=== PATIENT | male | born 1990 | race Hispanic/Latino ===

== ENCOUNTER 2025-09-21 16:00 | Inpatient (IN) | payer SELFPAY ==
[~2025-09-21] VITALS: Ht 165.1 cm; Wt 84.1 kg
[2025-09-21] MEDS ORDERED: ADDERALL 15 MG15 MG (16:14)
[2025-09-21] MEDS: HYDROCODONE/APAP 5MG-325MG TAB PO ONE (16:34)
[2025-09-21] MEDS ORDERED: ONDANSETRON HCL INJ 2MG/ML 2ML 2 MG/ML VIAL IV PRN (18:00)
[2025-09-21 19:20] VITALS: PULSE 73; RESP 16; TEMP 98.2
[2025-09-21] MEDS: SODIUM CHLORIDE 0.9% 1000ML 1,000 ML IV SCH (19:21)
[2025-09-21] MEDS: Vancomycin IV 1 GM in SODIUM CHLORIDE 0.9% 250ML 250 ML IV ONE (19:21)
[2025-09-21 19:33] VITALS: PULSE 81; RESP 18; O2SAT 99
[2025-09-21 20:00] VITALS: BP 139/79; PULSE 83; RESP 20; TEMP 97.8; O2SAT 99
[2025-09-21 21:00] VITALS: BP_SYST 125; BP_SYST 139; BP_DIAS 66; BP_DIAS 74; PULSE 83; PULSE 86; RESP 20; TEMP 97.8; TEMP 98.7; O2SAT 100; O2SAT 99
[2025-09-21] MEDS: Morphine 4mg INJECTION 4 MG/ML INJ IV PRN (21:49)
[2025-09-21] MEDS ORDERED: SEVOFLURANE INHAL SOLN 250 ML PEN BTL ONE (22:42)
[2025-09-22] VITALS (10 sets, daily range): BP systolic 119–137; BP diastolic 65–73; PULSE 71–100; RESP 18–20; TEMP 98.2–99.8; O2SAT 96–100
[2025-09-22] MEDS: Vancomycin IV 1 GM in SODIUM CHLORIDE 0.9% 250ML 250 ML IV SCH (05:12)
[2025-09-22 05:52] LABS: BASOPHILS % 0.4 % (0.0-1.0); EOSINOPHILS % 0.2 % (0.0-6.0); LYMPHOCYTES % 14.7 % (18.0-39.1); MONOCYTES % 6.0 % (4.4-11.3); NEUTROPHILS % 77.6 % (38.7-80.0); RED CELL DISTRIBUTION WIDTH 13.8 % (11.7-14.4)
[2025-09-22 06:24] LABS: EST GLOMERULAR FILTRATION RATE 94.0 ML/MIN (>=60)
[2025-09-22] MEDS: KETOROLAC TROMETHAMINE 30 MG/ML VIAL IV STA (09:21)
[2025-09-22] MEDS ORDERED: LIDOCAINE HCL 2% LOCAL INJ 5 ML SDV VIAL INJ ONE (14:25)
[2025-09-22] MEDS ORDERED: PROPOFOL IV EMULSION 10 MG/ML 20 ML VIAL ONE (14:25)
[2025-09-22] MEDS ORDERED: MIDAZOLAM HCL 2 MG/2 ML VIAL ONE (14:26)
[2025-09-22] MEDS ORDERED: FENTANYL CITRATE/PF 100MCG/2 ML INJ ONE ×2 (14:26→15:10)
[2025-09-22] MEDS ORDERED: DEXAMETHASONE SOD PHOS INJ 4 MG/ML SDV ONE (15:03)
[2025-09-22] MEDS ORDERED: ONDANSETRON HCL INJ 2MG/ML 2ML 2 MG/ML VIAL ONE (15:03)
[2025-09-22] MEDS ORDERED: KETOROLAC TROMETHAMINE 30 MG/ML VIAL ONE (15:03)
[2025-09-22] MEDS ORDERED: FAMOTIDINE 20 MG/2 ML VIAL IV ONE (15:03)
[2025-09-22] MEDS ORDERED: HYDROCODONE/APAP 5MG-325MG TAB PO PRN (15:30)
[2025-09-23 03:31] VITALS: BP 122/62; PULSE 70; RESP 18; TEMP 98.3; O2SAT 100
[2025-09-23 06:44] LABS: BASOPHILS % 0.1 % (0.0-1.0); EOSINOPHILS % 0.0 % (0.0-6.0); LYMPHOCYTES % 9.7 % (18.0-39.1); MONOCYTES % 6.2 % (4.4-11.3); NEUTROPHILS % 83.1 % (38.7-80.0); RED CELL DISTRIBUTION WIDTH 13.2 % (11.7-14.4)
[2025-09-23 06:59] LABS: EST GLOMERULAR FILTRATION RATE 119.0 ML/MIN (>=60)
[2025-09-23 08:00] VITALS: BP 122/62; PULSE 70; RESP 18; TEMP 98.3; O2SAT 100
[2025-09-23 08:45] VITALS: BP 128/85; PULSE 67; RESP 20; TEMP 98.4; O2SAT 98
[2025-09-23 12:44] VITALS: BP 123/73; PULSE 72; RESP 19; TEMP 98.5; O2SAT 100
[2025-09-23] MEDS: ONDANSETRON HCL INJ 2MG/ML 2ML 2 MG/ML VIAL IV PRN (13:06)
[2025-09-23 16:44] VITALS: BP 122/70; PULSE 74; RESP 20; TEMP 98.8; O2SAT 99
[2025-09-23 19:17] VITALS: BP 139/83; PULSE 85; RESP 18; TEMP 98; O2SAT 98
[2025-09-24 03:30] VITALS: BP 128/71; PULSE 69; RESP 18; TEMP 97.7; O2SAT 98
[2025-09-24 04:31] VITALS: BP 128/71; PULSE 69; RESP 18; TEMP 97.7; O2SAT 98
[2025-09-24 05:07] LABS: BASOPHILS % 0.3 % (0.0-1.0); EOSINOPHILS % 0.4 % (0.0-6.0); LYMPHOCYTES % 28.4 % (18.0-39.1); MONOCYTES % 7.7 % (4.4-11.3); NEUTROPHILS % 61.5 % (38.7-80.0); RED CELL DISTRIBUTION WIDTH 13.2 % (11.7-14.4)
[2025-09-24 05:48] LABS: EST GLOMERULAR FILTRATION RATE 80.0 ML/MIN (>=60)
[2025-09-24 08:18] VITALS: BP 125/82; PULSE 66; RESP 20; TEMP 98.2; O2SAT 97
[2025-09-24 09:30] VITALS: BP 125/82; PULSE 66; RESP 20; TEMP 98.2; O2SAT 97
[2025-09-24 12:36] VITALS: BP 130/83; PULSE 73; RESP 18; TEMP 98.8; O2SAT 99
[2025-09-24] MEDS ORDERED: BACTRIM DS TAB1 EACH PO (13:15)
== END 2025-09-24 14:50 | disposition home or self-care (01) | DRG 581 ==
LOC: FSED 16:05 → MED/SURG2 18:05 → OBSVTOIN 09-23 11:37
PROVIDERS: ADMIT Family Medicine Adult Medicine; ATTEND Family Medicine Adult Medicine
PROC: 0K9N0ZZ Drainage of Right Hip Muscle, Open Approach (ICD-10-PCS; principal; 2025-09-22 14:50)
DX: L02.31 Cutaneous abscess of buttock (principal); L03.317 Cellulitis of buttock; B95.61 Methicillin susceptible Staphylococcus aureus infection as the cause of diseases classified elsewhere; J06.9 Acute upper respiratory infection, unspecified; F90.9 Attention-deficit hyperactivity disorder, unspecified type; E66.9 Obesity, unspecified; Z68.30 Body mass index [BMI] 30.0-30.9, adult
CPT/HCPCS: 36415; 72193; 80053; 83036; 85025; 87071; 87075; 87186; 87205; 94799; 99284; G0378; J1100; J1308; J1885; J2003; J2250; J2270; J2405; J2470; J2543; J3373; J7030; J7050